=== PATIENT | female | born 1990 | race Hispanic/Latino ===

== ENCOUNTER 2021-01-24 00:13 | Emergency (ER) | payer SELFPAY ==
[2021-01-24] MEDS ORDERED: Dexamethasone 4 MG TAB ONE (00:55)
== END 2021-01-24 01:01 | disposition home or self-care (01) ==
LOC: CSHERS 00:13
DX: J30.9 Allergic rhinitis, unspecified (principal)
CPT/HCPCS: 99281; J8540

== ENCOUNTER 2021-07-14 22:44 | Emergency (ER) | payer SELFPAY ==
[2021-07-14] MEDS ORDERED: Ketorolac Tromethamine 30 MG/ML VIAL ONE (23:07)
[2021-07-14] MEDS ORDERED: Magnesium 2 GM/50 ML BAG (IN WATER) ONE (23:07)
[2021-07-14] MEDS ORDERED: diphenhydrAMINE 50 MG/ML VIAL ONE (23:07)
[2021-07-14] MEDS ORDERED: Metoclopramide HCl 10 MG/2 ML VIAL ONE (23:07)
== END 2021-07-14 23:46 | disposition home or self-care (01) ==
LOC: CSHERS 22:44
DX: G43.909 Migraine, unspecified, not intractable, without status migrainosus (principal); R05.9 Cough, unspecified; R06.2 Wheezing
CPT/HCPCS: 71045; 94664; 94760; 96365; 96368; 96375; J1200; J1885; J2765; J3475

== ENCOUNTER 2021-10-19 22:17 | Emergency (ER) | payer SELFPAY ==
[2021-10-19] MEDS ORDERED: Ibuprofen 200 MG TAB ONE (23:51)
[2021-10-20 17:42] LABS: SARS-CoV-2 PCR by NAA DETECTED (NotDetected)
== END 2021-10-20 00:02 | disposition home or self-care (01) ==
LOC: CSHERS 22:17
DX: U07.1 COVID-19 (principal)
CPT/HCPCS: 99283; U0003; U0005

== ENCOUNTER 2022-02-17 17:48 | Emergency (ER) | payer SELFPAY ==
[2022-02-17 18:33] LABS: Bilirubin Neg (Negative); Blood, Urine Negative (Negative); Clarity Clear (Clear); Glucose, Urine (Dipstick) Normal (Negative); Ketone, Urine 50 mg/dL (Negative); Leukocyte 100 (Negative); Nitrite Negative (Negative); Protein, Urine (Dipstick) 15 mg/dl (Neg-Trace); Urobilinogen Normal mg/dL (Less than 2)
[2022-02-17 19:00] LABS: Bacteria/HPF 2+ HPF (None Seen)
[2022-02-17 19:02] LABS: Mucous/LPF 3+ LPF (<2+)
[2022-02-17 19:03] LABS: White Blood Cell Cast 0-3 LPF (None Seen)
[2022-02-17 20:05] LABS: Pregnancy Test - Urine (BHCG) POSITIVE (Negative); Pregu Control Background? CLEAR/WHITE (CLR/WHITE); Pregu Control Bar Appear? YES (CONTROL BAR)
[2022-02-17] MEDS ORDERED: Ondansetron ODT 4 MG TAB ONE (20:38)
[2022-02-17 21:03] LABS: BHCG - Serum POSITIVE (NEGATIVE); Pregs Control Background? CLEAR/WHITE (CLR/WHITE); Pregs Control Bar Appear? YES (CONTROL BAR)
== END 2022-02-17 22:06 | disposition home or self-care (01) ==
LOC: CSHERS 17:48
DX: O21.9 Vomiting of pregnancy, unspecified (principal); O99.891 Other specified diseases and conditions complicating pregnancy; R82.71 Bacteriuria
CPT/HCPCS: 81003; 81015; 81025; 84702; 84703; 87086; 99284; Q0162

== ENCOUNTER 2022-04-11 15:26 | Emergency (ER) | payer MEDICAID | END 2022-04-11 16:43 | disposition home or self-care (01) | LOC: CSHERS 15:26 | DX: O98.519 Other viral diseases complicating pregnancy, unspecified trimester (principal); U07.1 COVID-19; Z3A.00 Weeks of gestation of pregnancy not specified | CPT/HCPCS: 99283 ==

== ENCOUNTER 2022-05-12 07:54 | Emergency (ER) | payer MEDICAID, OTHER ==
[2022-05-12 08:48] LABS: #Eosinphils 0.2 10x3/uL (0.0-0.5); #Monocytes 0.8 10x3/uL (0.0-1.1); #Neutrophils 7.4 10x3/uL (1.5-8.4); %Basophils 0.3 % (0.0-2.0); %Eosinophils 1.6 % (0.0-6.0); %Lymphocytes 26.3 % (18.0-47.0); %Monocytes 7.3 % (0.0-10.0); %Neutrophils 64.2 % (40.0-75.0); Hemoglobin 10.4 g/dL (12.0-15.5); Mean Corpuscular HGB CONC 32.2 g/dL (32.0-36.0); Mean Corpuscular Hemoglobin 25.4 pg (27.0-33.0); Platelet Count 232 10x3/uL (150-450); RBC Distribution Width 14.7 % (11.5-14.5); Red Blood Cell (RBC) Count 4.09 10x6/uL (3.90-5.03); White Blood Cell (WBC) Count 11.6 10x3/uL (3.5-10.5)
[2022-05-12 09:11] LABS: ALT (SGPT) 21 U/L (8-55); AST (SGOT) 17 U/L (5-34); Albumin 3.5 g/dL (3.5-5.0); Alkaline Phosphatase 59 U/L (40-110); Anion Gap 11 mmol/L (10-20); BUN (Urea Nitrogen) 12 mg/dL (7.0-18.7); Bilirubin, Total 0.2 mg/dL (0.2-1.2); Calc. Creatinine Clearance 0 mL/min (70-130); Calcium 9.3 mg/dL (7.8-10.44); Carbon Dioxide 21 mmol/L (22-29); Chloride 107 mmol/L (98-107); Estimated GFR 111; Globulin 3.4 g/dL (2.4-3.5); Glucose 82 mg/dL (70-105); Potassium 3.9 mmol/L (3.5-5.1); Protein, Total 6.9 g/dL (6.0-8.3); Sodium 135 mmol/L (136-145)
[2022-05-12 11:02] LABS: Bilirubin Neg (Negative); Blood, Urine Negative (Negative); Clarity Cloudy (Clear); Glucose, Urine (Dipstick) Normal (Negative); Ketone, Urine 5 mg/dL (Negative); Leukocyte 500 (Negative); Nitrite Negative (Negative); Protein, Urine (Dipstick) 15 mg/dl (Neg-Trace); Specific Gravity, Urine 1.025 (1.002-1.036); Urobilinogen Normal mg/dL (Less than 2)
[2022-05-12 11:09] LABS: Bacteria/HPF 3+ HPF (None Seen); RBC/HPF 0-3 HPF (0-3)
== END 2022-05-12 12:03 | disposition home or self-care (01) ==
LOC: CSHERS 07:54
DX: R55 Syncope and collapse (principal)
CPT/HCPCS: 36415; 36416; 71045; 80053; 81003; 81015; 85025; 93005; 96360

== ENCOUNTER 2022-09-24 06:17 | Inpatient (IN) | payer OTHER ==
[2022-09-24 06:47] VITALS: BMI 45.5
[2022-09-24 07:41] LABS: Fetal Membranes Rupture No Membranes Rupture (No Rupture)
[2022-09-24 11:27] LABS: #Eosinphils 0.1 10x3/uL (0.0-0.5); #Monocytes 0.8 10x3/uL (0.0-1.1); #Neutrophils 8.2 10x3/uL (1.5-8.4); %Basophils 0.3 % (0.0-2.0); %Eosinophils 0.7 % (0.0-6.0); %Lymphocytes 23.2 % (18.0-47.0); %Monocytes 6.6 % (0.0-10.0); %Neutrophils 68.4 % (40.0-75.0); Hemoglobin 10.7 g/dL (12.0-15.5); Mean Corpuscular HGB CONC 31.8 g/dL (32.0-36.0); Mean Corpuscular Hemoglobin 25.7 pg (27.0-33.0); Mean Corpuscular Volume 80.8 fl (81.6-98.3); Platelet Count 241 10x3/uL (150-450); RBC Distribution Width 15.6 % (11.5-14.5); Red Blood Cell (RBC) Count 4.16 10x6/uL (3.90-5.03); White Blood Cell (WBC) Count 11.9 10x3/uL (3.5-10.5)
[2022-09-24] MEDS ORDERED: Promethazine HCl 25 MG SUPP PR PRN (11:59)
[2022-09-24] MEDS ORDERED: Moisturizing Cream (Eucerin) 113 GM JAR TOP PRN (11:59)
[2022-09-24] MEDS ORDERED: Promethazine HCl 25 MG/ML VIAL IM PRN (11:59)
[2022-09-24] MEDS ORDERED: Naloxone HCl 0.4 mg/ml Vial IV PRN (11:59)
[2022-09-24] MEDS ORDERED: Naloxone HCl 0.4 mg/ml Vial IVP PRN ×2 (11:59)
[2022-09-24] MEDS ORDERED: diphenhydrAMINE 50 MG/ML VIAL IVP PRN (11:59)
[2022-09-24] MEDS ORDERED: Ketorolac Tromethamine 30 MG/ML VIAL IVP PRN (11:59)
[2022-09-24] MEDS ORDERED: Meperidine HCl/PF 25 MG/ML VIAL SLOW IVP PRN (11:59)
[2022-09-24] MEDS ORDERED: Fentanyl 100 MCG/2 ML VIAL SLOW IVP PRN (11:59)
[2022-09-24] MEDS ORDERED: Ondansetron HCl/PF 4 MG/2 ML Vial IVP PRN (11:59)
[2022-09-24] MEDS ORDERED: Ondansetron PF 4 MG/2 ML Vial IVP PRN (11:59)
[2022-09-24] MEDS ORDERED: Communication Order-Pharmacy FS SCH (12:00)
[2022-09-24] MEDS ORDERED: Ketorolac Tromethamine 30 MG/ML VIAL IVP SCH (12:00)
[2022-09-24] MEDS ORDERED: Famotidine/PF 20 mg/2ml Vial SLOW IVP PRN (12:03)
[2022-09-24] MEDS ORDERED: Bicitra 30 ML UDCUP PO PRN (12:03)
[2022-09-24] MEDS ORDERED: Acetaminophen 500 MG TAB PO PRN (12:03)
[2022-09-24] MEDS ORDERED: hydrALAZINE 20 MG/ML VIAL SLOW IVP PRN (12:03)
[2022-09-24] MEDS ORDERED: CEFAZOLIN 2 GM in Sodium Chloride 0.9% 100 ML IVPB SCH (12:15)
[2022-09-24] MEDS ORDERED: Ketorolac Tromethamine 30 MG/ML VIAL ONE (14:47)
[2022-09-24] MEDS ORDERED: Ondansetron PF 4 MG/2 ML Vial ONE (14:47)
[2022-09-24] MEDS ORDERED: Dexamethasone 4 mg/ml Vial ONE (14:47)
[2022-09-24] MEDS ORDERED: Morphine PF 10 MG/10 ML VIAL ONE (14:47)
[2022-09-24] MEDS ORDERED: Phenylephrine 10 MG/ML VIAL ONE (14:47)
[2022-09-24] MEDS ORDERED: Oxytocin 10 UNITS/ML VIAL ONE (14:47)
[2022-09-24 15:32] LABS: Hemoglobin 10.7 g/dL (12.0-15.5); Mean Corpuscular HGB CONC 31.7 g/dL (32.0-36.0); Mean Corpuscular Hemoglobin 25.2 pg (27.0-33.0); Mean Corpuscular Volume 79.5 fl (81.6-98.3); Mean Platelet Volume 10.5 fl (7.4-10.4); Platelet Count 226 10x3/uL (150-450); RBC Distribution Width 15.6 % (11.5-14.5); Red Blood Cell (RBC) Count 4.25 10x6/uL (3.90-5.03); White Blood Cell (WBC) Count 11.7 10x3/uL (3.5-10.5)
[2022-09-24 15:46] LABS: HBSAg Index 0.17 S/CO (0-0.99); Hep B Surf Ag Non-Reactive S/CO (NonReactive)
[2022-09-24 15:49] LABS: Syphilis Antibody Nonreactive (Nonreactive); Syphilis Antibody Index 0.03 S/CO (<1.00 Non-Reactive)
[2022-09-24] MEDS ORDERED: Azithromycin 500 MG VIAL ONE (16:13)
[2022-09-24] MEDS ORDERED: Azithromycin 500 MG in Sodium Chloride 0.9% 250 ML 250 ML IVPB SCH (16:30)
[2022-09-24 16:31] LABS: SARS-CoV-2 NAA Rapid Test Not Detected (NotDetected)
[2022-09-24] MEDS ORDERED: diphenhydrAMINE 50 MG/ML VIAL ONE (16:48)
[2022-09-24 19:36] LABS: HIV (1/2) Antibody/Antigen Non-Reactive (NonReactive); HIV 1/2 INDEX 0.16 S/CO (<1.00)
[2022-09-24] MEDS ORDERED: NS w/ Oxytocin 30 units 500 ML IV SCH (19:40)
[2022-09-24] MEDS ORDERED: Acetaminophen 325 MG TAB PO PRN (19:40)
[2022-09-24] MEDS ORDERED: Methylergonovine 0.2 MG/ML VIAL IM PRN (19:40)
[2022-09-24] MEDS ORDERED: Misoprostol 200 MCG TAB PR PRN (19:40)
[2022-09-24] MEDS ORDERED: diphenhydrAMINE 25 MG CAP PO PRN (19:40)
[2022-09-24] MEDS ORDERED: Simethicone Chewable 80 MG TAB PO PRN (19:40)
[2022-09-24] MEDS ORDERED: Boostrix 0.5 ML (Tdap) VIAL (>/=7 yrs of age) IM ONE (19:40)
[2022-09-24] MEDS ORDERED: HYDROcodone/Acetaminophen 5/325 mg Tablet PO PRN (23:59)
[2022-09-25 03:52] LABS: Hemoglobin 9.4 g/dL (12.0-15.5); Mean Corpuscular HGB CONC 32.3 g/dL (32.0-36.0); Mean Corpuscular Hemoglobin 25.6 pg (27.0-33.0); Mean Corpuscular Volume 79.3 fl (81.6-98.3); Mean Platelet Volume 10.9 fl (7.4-10.4); Platelet Count 205 10x3/uL (150-450); RBC Distribution Width 15.3 % (11.5-14.5); Red Blood Cell (RBC) Count 3.67 10x6/uL (3.90-5.03); White Blood Cell (WBC) Count 18.2 10x3/uL (3.5-10.5)
[2022-09-25] MEDS: Lactated Ringer's 1,000 ML IV SCH ×2 (08:14→13:54)
[2022-09-25] MEDS: Docusate 100 MG CAP PO SCH ×3 (08:16→20:31)
[2022-09-25] MEDS: Prenatal Vitamin 1 TAB PO SCH (09:01)
[2022-09-25] MEDS: Ibuprofen 800 MG TAB PO SCH ×2 (13:54→20:15)
[2022-09-26] MEDS: HYDROcodone/Acetaminophen 5/325 mg Tablet PO PRN ×3 (01:29→11:14)
[2022-09-26] MEDS: Ibuprofen 800 MG TAB PO SCH (05:16)
[2022-09-26] MEDS: Lactated Ringer's 1,000 ML IV SCH ×2 (06:11→10:00)
[2022-09-26 07:27] VITALS: BP 115/74; TEMP 97.5
[2022-09-26] MEDS: Prenatal Vitamin 1 TAB PO SCH (08:36)
[2022-09-26] MEDS: Docusate 100 MG CAP PO SCH (08:36)
== END 2022-09-26 13:05 | disposition home or self-care (01) | DRG 788 ==
LOC: CSHLD/OP 06:17 → CSHLD 12:22 → CSHPP 20:30
PROVIDERS: ADMIT Obstetrics & Gynecology; ATTEND Obstetrics & Gynecology
PROC: 10D00Z1 Extraction of Products of Conception, Low, Open Approach (ICD-10-PCS; principal; 2022-09-24)
PROC: 0UB90ZZ Excision of Uterus, Open Approach (ICD-10-PCS; 2022-09-24)
DX: O42.02 Full-term premature rupture of membranes, onset of labor within 24 hours of rupture (principal); O34.211 Maternal care for low transverse scar from previous cesarean delivery; Z37.0 Single live birth; Z3A.37 37 weeks gestation of pregnancy; Z20.822 Contact with and (suspected) exposure to COVID-19; Z87.440 Personal history of urinary (tract) infections; F32.A Depression, unspecified; O99.344 Other mental disorders complicating childbirth; O34.13 Maternal care for benign tumor of corpus uteri, third trimester; D25.9 Leiomyoma of uterus, unspecified
CPT/HCPCS: 36415; 51702; 76819; 84112; 85025; 85027; 86780; 86850; 86900; 86901; 87340; 87389; 88305; 99285; J1100; J1200; J1885; J2274; J2370; J2405; J2590; J3490; S0028; U0002

== ENCOUNTER 2023-07-14 12:24 | Emergency (ER) | payer OTHER, SELFPAY | END 2023-07-14 13:00 | disposition home or self-care (01) | LOC: CSHERS 12:24 | DX: H66.91 Otitis media, unspecified, right ear (principal) | CPT/HCPCS: 99282 ==

== ENCOUNTER 2023-08-09 14:52 | Inpatient (IN) | payer SELFPAY ==
[2023-08-09 15:36] LABS: Bilirubin Neg (Negative); Blood, Urine Negative (Negative); Clarity Clear (Clear); Glucose, Urine (Dipstick) Normal (Negative); Ketone, Urine Negative (Negative); Leukocyte 25 (Negative); Nitrite Negative (Negative); Protein, Urine (Dipstick) 15 mg/dl (Neg-Trace); Specific Gravity, Urine 1.015 (1.005-1.030)
[2023-08-09] MEDS ORDERED: Lidocaine 2% Viscous Solution 10 ML, Aluminum & Magnesium Hydroxide 30 ML SSW SCH (15:45)
[2023-08-09 15:50] LABS: Pregnancy Test - Urine (BHCG) Negative (Negative); Pregu Control Background? CLEAR/WHITE (CLR/WHITE); Pregu Control Bar Appear? YES (CONTROL BAR)
[2023-08-09 15:51] LABS: Specific Gravity 1.015 (1.002-1.036)
[2023-08-09 15:57] LABS: #Basophils 0.1 10x3/uL (0.0-0.2); #Eosinphils 0.3 10x3/uL (0.0-0.5); #Monocytes 0.8 10x3/uL (0.0-1.1); #Neutrophils 5.9 10x3/uL (1.5-8.4); %Basophils 0.6 % (0.0-2.0); %Eosinophils 2.3 % (0.0-6.0); %Lymphocytes 35.8 % (18.0-47.0); %Monocytes 7.3 % (0.0-10.0); %Neutrophils 53.8 % (40.0-75.0); Hematocrit 39.4 % (34.9-44.5); Hemoglobin 12.5 g/dL (12.0-15.5); Mean Corpuscular HGB CONC 31.7 g/dL (32.0-36.0); Mean Corpuscular Hemoglobin 26.1 pg (27.0-33.0); Mean Corpuscular Volume 82.3 fl (81.6-98.3); Mean Platelet Volume 11.2 fl (7.4-10.4); Platelet Count 260 10x3/uL (150-450); RBC Distribution Width 14.4 % (11.5-14.5); Red Blood Cell (RBC) Count 4.79 10x6/uL (3.90-5.03)
[2023-08-09 16:06] LABS: Bacteria/HPF Rare-Few HPF (None Seen); CAUTI Indications for Culture Pelvic or flank pain; Mucous/LPF 2+ LPF (<2+); RBC/HPF 0-3 HPF (0-3); Squamous Epithelial 0-3 HPF (0-3); Urine Culture Reflex No No; WBC/HPF 0-3 HPF (0-3)
[2023-08-09] MEDS ORDERED: Ketorolac Tromethamine 30 MG/ML VIAL ONE (16:38)
[2023-08-09 17:03] LABS: ALT (SGPT) 365 U/L (8-55); Albumin 4.2 g/dL (3.5-5.0); Alkaline Phosphatase 165 U/L (40-110); Anion Gap 15 mmol/L (10-20); BUN (Urea Nitrogen) 14 mg/dL (7.0-18.7); Bilirubin, Total 0.5 mg/dL (0.2-1.2); Calc. Creatinine Clearance 0 mL/min (70-130); Carbon Dioxide 21 mmol/L (22-29); Chloride 105 mmol/L (98-107); Estimated GFR 92; Globulin 4.1 g/dL (2.4-3.5); Glucose 81 mg/dL (70-105); Lipase 25 U/L (8-78); Potassium 4.5 mmol/L (3.5-5.1); Protein, Total 8.3 g/dL (6.0-8.3); Sodium 136 mmol/L (136-145)
[2023-08-09 17:12] LABS: AST (SGOT) 206 U/L (5-34)
[2023-08-09] MEDS: Morphine 2 MG/ML VIAL SLOW IVP PRN (22:48)
[2023-08-09] MEDS: Sodium Chloride 0.9% 1,000 ML IV SCH (22:55)
[2023-08-09] MEDS: Ondansetron PF 4 MG/2 ML Vial IVP PRN (22:55)
[2023-08-09 23:00] VITALS: BMI 44.7
[2023-08-09] MEDS ORDERED: FLU VACC QS2023-24(6MOS UP)/PF 60 MCG/0.5 ML SYRINGE IM ONE (23:30)
[2023-08-10] MEDS: Morphine 2 MG/ML VIAL SLOW IVP PRN ×4 (02:31→17:52)
[2023-08-10 05:16] LABS: #Eosinphils 0.2 10x3/uL (0.0-0.5); #Monocytes 0.6 10x3/uL (0.0-1.1); #Neutrophils 4.6 10x3/uL (1.5-8.4); %Basophils 0.5 % (0.0-2.0); %Eosinophils 2.4 % (0.0-6.0); %Lymphocytes 36.9 % (18.0-47.0); %Monocytes 7.1 % (0.0-10.0); %Neutrophils 52.9 % (40.0-75.0); Hematocrit 36.9 % (34.9-44.5); Hemoglobin 11.5 g/dL (12.0-15.5); Mean Corpuscular HGB CONC 31.2 g/dL (32.0-36.0); Mean Corpuscular Hemoglobin 25.7 pg (27.0-33.0); Mean Corpuscular Volume 82.6 fl (81.6-98.3); Mean Platelet Volume 10.9 fl (7.4-10.4); Platelet Count 240 10x3/uL (150-450); RBC Distribution Width 14.3 % (11.5-14.5); Red Blood Cell (RBC) Count 4.47 10x6/uL (3.90-5.03); White Blood Cell (WBC) Count 8.6 10x3/uL (3.5-10.5)
[2023-08-10 05:27] LABS: ALT (SGPT) 259 U/L (8-55); AST (SGOT) 103 U/L (5-34); Albumin 3.6 g/dL (3.5-5.0); Alkaline Phosphatase 139 U/L (40-110); Anion Gap 12 mmol/L (10-20); BUN (Urea Nitrogen) 14 mg/dL (7.0-18.7); Bilirubin, Direct 0.2 mg/dL (0.1-0.3); Bilirubin, Total 0.3 mg/dL (0.2-1.2); Calc. Creatinine Clearance 169 mL/min (70-130); Calcium 8.5 mg/dL (7.8-10.44); Carbon Dioxide 22 mmol/L (22-29); Chloride 107 mmol/L (98-107); Estimated GFR 99; Glucose 100 mg/dL (70-105); Magnesium 2.1 mg/dL (1.6-2.6); Potassium 4.1 mmol/L (3.5-5.1); Protein, Total 7.1 g/dL (6.0-8.3); Sodium 137 mmol/L (136-145)
[2023-08-10] MEDS: Sodium Chloride 0.9% 1,000 ML IV SCH ×3 (06:43→17:46)
[2023-08-10] MEDS: Ondansetron PF 4 MG/2 ML Vial IVP PRN ×2 (06:46→17:48)
[2023-08-10] MEDS ORDERED: Iopamidol 30 ML ONE (13:21)
[2023-08-10] MEDS ORDERED: Indomethacin 50 MG SUPP ONE ×2 (13:21→13:22)
[2023-08-10] MEDS ORDERED: SUGAMMADEX SODIUM 200 MG/2 ML VIAL ONE (13:31)
[2023-08-10] MEDS ORDERED: PROPOFOL 20 ML ONE ×2 (13:36→14:37)
[2023-08-10] MEDS ORDERED: Dexamethasone 4 mg/ml Vial ONE (13:36)
[2023-08-10] MEDS ORDERED: Ondansetron PF 4 MG/2 ML Vial ONE (13:36)
[2023-08-10] MEDS ORDERED: fentaNYL 50 mcg/mL 1 mL Vial ONE ×3 (13:36→14:53)
[2023-08-10] MEDS ORDERED: Lidocaine 1% PF 5 ML VIAL ONE (13:36)
[2023-08-10] MEDS ORDERED: Midazolam HCl 2 mg/2 ml Vial ONE (13:36)
[2023-08-10] MEDS ORDERED: Glucagon 1 MG/ML KIT ONE ×2 (15:04→15:05)
[2023-08-10] MEDS ORDERED: PHENYLEPHRINE-NS 100 MCG/ML 10 ML SYRINGE ONE (15:06)
[2023-08-10] MEDS ORDERED: cefTRIAXone (ROCEPHIN) 1 GM VIAL ONE (16:28)
[2023-08-10] MEDS ORDERED: cefTRIAXone\\ROCEPHIN 1 GM in Sodium Chloride 0.9% 100 ML IVPB SCH (17:00)
[2023-08-11 05:01] LABS: #Monocytes 0.5 10x3/uL (0.0-1.1); #Neutrophils 11.2 10x3/uL (1.5-8.4); %Basophils 0.1 % (0.0-2.0); %Lymphocytes 13.1 % (18.0-47.0); %Monocytes 3.6 % (0.0-10.0); %Neutrophils 82.6 % (40.0-75.0); Hematocrit 34.3 % (34.9-44.5); Hemoglobin 10.9 g/dL (12.0-15.5); Mean Corpuscular HGB CONC 31.8 g/dL (32.0-36.0); Mean Corpuscular Volume 81.9 fl (81.6-98.3); Mean Platelet Volume 11.2 fl (7.4-10.4); Platelet Count 254 10x3/uL (150-450); RBC Distribution Width 14.2 % (11.5-14.5); Red Blood Cell (RBC) Count 4.19 10x6/uL (3.90-5.03); White Blood Cell (WBC) Count 13.6 10x3/uL (3.5-10.5)
[2023-08-11 05:07] LABS: Anion Gap 15 mmol/L (10-20); BUN (Urea Nitrogen) 9 mg/dL (7.0-18.7); Calc. Creatinine Clearance 185 mL/min (70-130); Calcium 8.2 mg/dL (7.8-10.44); Carbon Dioxide 16 mmol/L (22-29); Chloride 109 mmol/L (98-107); Estimated GFR 110; Glucose 94 mg/dL (70-105); Potassium 4.5 mmol/L (3.5-5.1); Sodium 135 mmol/L (136-145)
[2023-08-11] MEDS: Sodium Chloride 0.9% 1,000 ML IV SCH (07:04)
[2023-08-11] MEDS: Morphine 2 MG/ML VIAL SLOW IVP PRN ×2 (08:35→22:03)
[2023-08-11] MEDS ORDERED: CEFAZOLIN 2 GM VIAL ONE (10:13)
[2023-08-11] MEDS ORDERED: Bupivacaine PF 0.5% 30 ML VIAL ONE (10:13)
[2023-08-11] MEDS ORDERED: PROPOFOL 20 ML ONE (10:20)
[2023-08-11] MEDS ORDERED: Dexamethasone 20 MG/5 ML VIAL ONE (10:20)
[2023-08-11] MEDS ORDERED: Rocuronium Bromide 10 MG/ML (10ML VIAL) ONE (10:20)
[2023-08-11] MEDS ORDERED: Ondansetron PF 4 MG/2 ML Vial ONE (10:20)
[2023-08-11] MEDS ORDERED: Ketorolac Tromethamine 30 MG/ML VIAL ONE ×2 (10:21→10:23)
[2023-08-11] MEDS ORDERED: Fentanyl 250 MCG/5 ML VIAL ONE (10:21)
[2023-08-11] MEDS ORDERED: Lidocaine 2% PF 5 ML VIAL ONE (10:21)
[2023-08-11] MEDS ORDERED: Midazolam HCl 2 mg/2 ml Vial ONE (10:21)
[2023-08-11] MEDS ORDERED: Dexmedetomidine 200 MCG/2 ML VIAL ONE (10:25)
[2023-08-11] MEDS ORDERED: Piperacillin/Tazobactam 3.375 GM VIAL ONE (10:34)
[2023-08-11] MEDS ORDERED: EPINEPHrine 1 MG/ML AMP ONE (11:39)
[2023-08-11] MEDS ORDERED: fentaNYL 50 mcg/mL 1 mL Vial ONE (13:13)
[2023-08-11] MEDS: HYDROcodone/Acetaminophen 5/325 mg Tablet PO PRN (16:38)
[2023-08-11 19:39] LABS: #Monocytes 0.3 10x3/uL (0.0-1.1); #Neutrophils 14.2 10x3/uL (1.5-8.4); %Basophils 0.1 % (0.0-2.0); %Lymphocytes 7.5 % (18.0-47.0); %Monocytes 1.8 % (0.0-10.0); %Neutrophils 90.2 % (40.0-75.0); Hematocrit 33.9 % (34.9-44.5); Hemoglobin 10.5 g/dL (12.0-15.5); Mean Corpuscular Hemoglobin 25.6 pg (27.0-33.0); Mean Corpuscular Volume 82.7 fl (81.6-98.3); Mean Platelet Volume 10.9 fl (7.4-10.4); Platelet Count 232 10x3/uL (150-450); RBC Distribution Width 14.6 % (11.5-14.5); White Blood Cell (WBC) Count 15.7 10x3/uL (3.5-10.5)
[2023-08-11 19:51] LABS: Lactic Acid 1.2 mmol/L (0.5-2.2)
[2023-08-11 19:56] LABS: ALT (SGPT) 157 U/L (8-55); AST (SGOT) 59 U/L (5-34); Albumin 3.4 g/dL (3.5-5.0); Alkaline Phosphatase 113 U/L (40-110); Anion Gap 14 mmol/L (10-20); BUN (Urea Nitrogen) 9 mg/dL (7.0-18.7); Bilirubin, Total 0.3 mg/dL (0.2-1.2); Calc. Creatinine Clearance 161 mL/min (70-130); Calcium 8.3 mg/dL (7.8-10.44); Carbon Dioxide 17 mmol/L (22-29); Chloride 109 mmol/L (98-107); Estimated GFR 93; Globulin 3.5 g/dL (2.4-3.5); Glucose 119 mg/dL (70-105); Potassium 4.5 mmol/L (3.5-5.1); Protein, Total 6.9 g/dL (6.0-8.3); Sodium 135 mmol/L (136-145)
[2023-08-12] MEDS: HYDROcodone/Acetaminophen 5/325 mg Tablet PO PRN ×4 (00:23→19:49)
[2023-08-12] MEDS: Sodium Chloride 0.9% 1,000 ML IV SCH ×2 (00:58→08:02)
[2023-08-12] MEDS: Morphine 2 MG/ML VIAL SLOW IVP PRN ×6 (02:09→22:02)
[2023-08-12] MEDS ORDERED: Simethicone Chewable 80 MG TAB PO SCH ×2 (02:30→18:45)
[2023-08-12 04:47] LABS: #Monocytes 0.8 10x3/uL (0.0-1.1); #Neutrophils 11.5 10x3/uL (1.5-8.4); %Basophils 0.1 % (0.0-2.0); %Eosinophils 0.1 % (0.0-6.0); %Lymphocytes 13.1 % (18.0-47.0); %Monocytes 5.9 % (0.0-10.0); %Neutrophils 80.3 % (40.0-75.0); Hematocrit 31.6 % (34.9-44.5); Hemoglobin 10.1 g/dL (12.0-15.5); Mean Corpuscular Hemoglobin 26.2 pg (27.0-33.0); Mean Corpuscular Volume 81.9 fl (81.6-98.3); Mean Platelet Volume 11.9 fl (7.4-10.4); Platelet Count 253 10x3/uL (150-450); RBC Distribution Width 14.6 % (11.5-14.5); Red Blood Cell (RBC) Count 3.86 10x6/uL (3.90-5.03); White Blood Cell (WBC) Count 14.3 10x3/uL (3.5-10.5)
[2023-08-12 06:13] LABS: ALT (SGPT) 129 U/L (8-55); AST (SGOT) 44 U/L (5-34); Albumin 3.3 g/dL (3.5-5.0); Alkaline Phosphatase 108 U/L (40-110); Anion Gap 12 mmol/L (10-20); BUN (Urea Nitrogen) 8 mg/dL (7.0-18.7); Bilirubin, Total 0.3 mg/dL (0.2-1.2); Calc. Creatinine Clearance 180 mL/min (70-130); Calcium 8.1 mg/dL (7.8-10.44); Carbon Dioxide 20 mmol/L (22-29); Chloride 110 mmol/L (98-107); Estimated GFR 107; Globulin 3.2 g/dL (2.4-3.5); Glucose 98 mg/dL (70-105); Potassium 4.1 mmol/L (3.5-5.1); Protein, Total 6.5 g/dL (6.0-8.3); Sodium 138 mmol/L (136-145)
[2023-08-12 09:19] LABS: PT - Undiluted 14.6 sec (12.0-14.7); PTT - Undiluted 24.3 sec (22.9-36.1)
[2023-08-13] MEDS: HYDROcodone/Acetaminophen 5/325 mg Tablet PO PRN ×2 (03:02→20:34)
[2023-08-13] MEDS: Simethicone Chewable 80 MG TAB PO PRN ×2 (04:36→22:39)
[2023-08-13] MEDS: Morphine 2 MG/ML VIAL SLOW IVP PRN ×2 (05:17→21:55)
[2023-08-13 05:44] LABS: #Neutrophils 7.2 10x3/uL (1.5-8.4); %Basophils 0.3 % (0.0-2.0); %Eosinophils 0.4 % (0.0-6.0); %Lymphocytes 25.9 % (18.0-47.0); %Monocytes 8.8 % (0.0-10.0); %Neutrophils 64.3 % (40.0-75.0); Hematocrit 31.6 % (34.9-44.5); Hemoglobin 10.1 g/dL (12.0-15.5); Mean Corpuscular Hemoglobin 26.5 pg (27.0-33.0); Mean Corpuscular Volume 82.9 fl (81.6-98.3); Mean Platelet Volume 11.3 fl (7.4-10.4); Platelet Count 216 10x3/uL (150-450); RBC Distribution Width 14.7 % (11.5-14.5); Red Blood Cell (RBC) Count 3.81 10x6/uL (3.90-5.03); White Blood Cell (WBC) Count 11.1 10x3/uL (3.5-10.5)
[2023-08-13 05:53] LABS: ALT (SGPT) 95 U/L (8-55); AST (SGOT) 26 U/L (5-34); Albumin 3.2 g/dL (3.5-5.0); Alkaline Phosphatase 93 U/L (40-110); Anion Gap 11 mmol/L (10-20); BUN (Urea Nitrogen) 10 mg/dL (7.0-18.7); Bilirubin, Total 0.5 mg/dL (0.2-1.2); Calc. Creatinine Clearance 180 mL/min (70-130); Carbon Dioxide 23 mmol/L (22-29); Chloride 106 mmol/L (98-107); Estimated GFR 107; Glucose 87 mg/dL (70-105); Protein, Total 6.2 g/dL (6.0-8.3); Sodium 136 mmol/L (136-145)
[2023-08-13] MEDS ORDERED: fentaNYL 50 mcg/mL 1 mL Vial ONE ×2 (12:53→13:51)
[2023-08-13] MEDS ORDERED: PROPOFOL 20 ML ONE (12:53)
[2023-08-13] MEDS ORDERED: Dexamethasone 4 mg/ml Vial ONE (12:54)
[2023-08-13] MEDS ORDERED: Ondansetron PF 4 MG/2 ML Vial ONE (12:54)
[2023-08-13] MEDS ORDERED: Lidocaine 1% PF 5 ML VIAL ONE (12:54)
[2023-08-13] MEDS ORDERED: Succinylcholine 200 MG/10 ml SYRINGE FS ONE (12:54)
[2023-08-13] MEDS: Polyethylene Glycol 3350 17 GM Packet PO SCH (18:38)
[2023-08-13] MEDS ORDERED: Lactated Ringer's 500 ML IV SCH (22:30)
[2023-08-13] MEDS: Lactated Ringer's 1,000 ML IV SCH (23:15)
[2023-08-13] MEDS ORDERED: Famotidine/PF 20 mg/2ml Vial SLOW IVP SCH ×2 (23:30→23:45)
[2023-08-14] MEDS: HYDROcodone/Acetaminophen 5/325 mg Tablet PO PRN ×4 (00:38→19:42)
[2023-08-14] MEDS: Simethicone Chewable 80 MG TAB PO PRN ×2 (05:42→19:42)
[2023-08-14 05:43] LABS: #Neutrophils 8.8 10x3/uL (1.5-8.4); %Basophils 0.2 % (0.0-2.0); %Eosinophils 0.2 % (0.0-6.0); %Lymphocytes 17.5 % (18.0-47.0); %Monocytes 8.2 % (0.0-10.0); %Neutrophils 73.6 % (40.0-75.0); Hematocrit 33.2 % (34.9-44.5); Mean Corpuscular HGB CONC 33.1 g/dL (32.0-36.0); Mean Corpuscular Volume 81.4 fl (81.6-98.3); Mean Platelet Volume 11.1 fl (7.4-10.4); Platelet Count 237 10x3/uL (150-450); RBC Distribution Width 14.3 % (11.5-14.5); Red Blood Cell (RBC) Count 4.08 10x6/uL (3.90-5.03); White Blood Cell (WBC) Count 11.9 10x3/uL (3.5-10.5)
[2023-08-14] MEDS: Lactated Ringer's 1,000 ML IV SCH ×2 (05:43→14:50)
[2023-08-14 05:50] LABS: ALT (SGPT) 64 U/L (8-55); AST (SGOT) 20 U/L (5-34); Albumin 2.9 g/dL (3.5-5.0); Alkaline Phosphatase 80 U/L (40-110); Anion Gap 15 mmol/L (10-20); BUN (Urea Nitrogen) 8 mg/dL (7.0-18.7); Bilirubin, Total 0.6 mg/dL (0.2-1.2); Calc. Creatinine Clearance 180 mL/min (70-130); Calcium 8.1 mg/dL (7.8-10.44); Carbon Dioxide 22 mmol/L (22-29); Chloride 106 mmol/L (98-107); Estimated GFR 107; Globulin 3.2 g/dL (2.4-3.5); Glucose 95 mg/dL (70-105); Lipase 46 U/L (8-78); Potassium 4.5 mmol/L (3.5-5.1); Protein, Total 6.1 g/dL (6.0-8.3); Sodium 138 mmol/L (136-145)
[2023-08-14] MEDS: Polyethylene Glycol 3350 17 GM Packet PO SCH (09:23)
[2023-08-14] MEDS: Morphine 2 MG/ML VIAL SLOW IVP PRN ×2 (17:42→22:34)
[2023-08-15] MEDS: HYDROcodone/Acetaminophen 5/325 mg Tablet PO PRN ×2 (00:40→16:59)
[2023-08-15] MEDS: Benzocaine/Menthol 1 LOZ LOZ PO PRN (00:58)
[2023-08-15] MEDS: Lactated Ringer's 1,000 ML IV SCH ×4 (02:44→20:55)
[2023-08-15] MEDS: Morphine 2 MG/ML VIAL SLOW IVP PRN ×5 (04:28→23:13)
[2023-08-15] MEDS: Polyethylene Glycol 3350 17 GM Packet PO SCH (09:11)
[2023-08-15] MEDS ORDERED: Simethicone Chewable 80 MG TAB PO SCH (11:45)
[2023-08-15] MEDS ORDERED: Bisacodyl 5 MG TAB PO SCH (11:45)
[2023-08-15] MEDS ORDERED: Lidocaine Viscous Sol 2% 15 ml UD Cup SSW SCH (11:45)
[2023-08-16] MEDS: HYDROcodone/Acetaminophen 5/325 mg Tablet PO PRN ×2 (01:03→11:37)
[2023-08-16] MEDS: Morphine 2 MG/ML VIAL SLOW IVP PRN (05:44)
[2023-08-16] MEDS: Lactated Ringer's 1,000 ML IV SCH (05:45)
[2023-08-16] MEDS: Benzocaine/Menthol 1 LOZ LOZ PO PRN (06:29)
[2023-08-16] MEDS: Polyethylene Glycol 3350 17 GM Packet PO SCH (08:09)
[2023-08-16 13:05] VITALS: BP 139/82; TEMP 98.3
== END 2023-08-16 14:09 | disposition home or self-care (01) | DRG 409 ==
LOC: CSHERS 14:52 → CSHTELE 18:51
PROVIDERS: ADMIT Internal Medicine; ATTEND Internal Medicine
PROC: 0FC98ZZ Extirpation of Matter from Common Bile Duct, Via Natural or Artificial Opening Endoscopic (ICD-10-PCS; principal; 2023-08-10)
PROC: BF121ZZ Fluoroscopy of Gallbladder using Low Osmolar Contrast (ICD-10-PCS; 2023-08-10)
PROC: 0FT44ZZ Resection of Gallbladder, Percutaneous Endoscopic Approach (ICD-10-PCS; 2023-08-11)
PROC: 0FQ94ZZ Repair Common Bile Duct, Percutaneous Endoscopic Approach (ICD-10-PCS; 2023-08-11)
PROC: [UNRECOGNIZED PROCEDURE] (2023-08-13)
PROC: 0FC98ZZ Extirpation of Matter from Common Bile Duct, Via Natural or Artificial Opening Endoscopic (ICD-10-PCS; 2023-08-13)
DX: K80.70 Calculus of gallbladder and bile duct without cholecystitis without obstruction (principal); K91.71 Accidental puncture and laceration of a digestive system organ or structure during a digestive system procedure; Z68.41 Body mass index [BMI] 40.0-44.9, adult; K91.89 Other postprocedural complications and disorders of digestive system; R74.01 Elevation of levels of liver transaminase levels; Z98.890 Other specified postprocedural states; Z79.899 Other long term (current) drug therapy; E66.01 Morbid (severe) obesity due to excess calories; K59.00 Constipation, unspecified; Y83.8 Other surgical procedures as the cause of abnormal reaction of the patient, or of later complication, without mention of misadventure at the time of the procedure; R53.1 Weakness; J02.9 Acute pharyngitis, unspecified
CPT/HCPCS: 36415; 36416; 74181; 74330; 76705; 80048; 80053; 80076; 81001; 81025; 83605; 83690; 83735; 85025; 88304; 93005; 93010; 96374; C1725; C1769; C1889; J0171; J0696; J1100; J1611; J1650; J1885; J2001; J2250; J2272; J2405; J2543; J2704; J3010; J7050; J7120; Q9967; S0020; S0028